=== PATIENT | male | born 1950 | race Caucasian/White ===

== ENCOUNTER 2020-07-29 09:38 | Outpatient (CLI) | payer MEDICARE, SELFPAY ==
--- NOTE | ~2020-07-29 | MR_ITS ---
EXAMINATION: MR pelvis wo/w con DATE: 07/29/2020 11:08 INDICATION: Prostate cancer TECHNIQUE: Magnetic resonance imaging (MRI) of the pelvis was performed without and with 20 mL Multih ance intravenous contrast. Fullfield sequences of the pelvis included axial and coronal T2-weighted SS FSE, axial and coronal 2D FIESTA, axial SSFSE-IR CAPRICE, axial dual-echo T1-weighted FSPGR, axial and coronal T1 weighted LAVA, axial STIR, axial diffusion-weighted SE with apparent diffusion coefficie nt (ADC) maps. Postcontrast sequences included a sagittal and coronal T1-weighted LAVA and a time co urse axial T1-weighted LAVA with fullfield of view of the pelvis. COMPARISON: None. 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 This limits evaluation of the immediately surrounding bone and soft tissues. The prostate measures 5.7 x 3.6 x 4.7 cm. Bladder is normal. There are multiple diverticula along the vi sualized portion of the descending and sigmoid colon without adjacent inflammatory change to suggest diverticulitis. No dilated bowel to suggest obstruction. No free fluid in the pelvis. Moderate lumbar spondylosis. There is 2.5 x 2.5 cm mass at the entrance to the left inguinal canal suggesting a bloo d for prior inguinal hernia repair. No pathologically enlarged pelvic or inguinal lymphadenopathy. [place] ne marrow signal is normal. No pathologic marrow replacing process. IMPRESSION: 1. 2.5 x 2.5 cm mass at the entrance to the left inguinal canal which could represent a plug related to prior inguinal hernia repair. Correlate with surgical history. The absence of prior surgery to dif ferential would include malignancy or metastatic disease. No other evident pathologically enlarged pe lvic or inguinal lymphadenopathy. 2. Prostatomegaly measuring 5.7 x 3.6 x 4.7 cm. 3. Diverticulosis. Reviewed, dictated and finalized at location A. IMPRESSION: 1. 2.5 x 2.5 cm mass at the entrance to the left inguinal canal which could rep resent a plug related to prior inguinal hernia repair. Correlate with surgical history. The absence of prior surgery to differential would include malignancy or metastatic disease. No other evident pathologically enlarged pelvic or ingui nal lymphadenopathy. 2. Prostatomegaly measuring 5.7 x 3.6 x 4.7 cm. 3. Diverticulosis.
[2020-07-29 10:11] LABS: Estimated Glomerular Filt Rate > 60
== END 2020-07-29 09:39 | disposition home or self-care (01) ==
PROVIDERS: PCP Radiology Radiation Oncology; Visit Provider Radiology Radiation Oncology
DX: C61 Malignant neoplasm of prostate (principal); K57.30 Diverticulosis of large intestine without perforation or abscess without bleeding
CPT/HCPCS: 72197; A9577